=== PATIENT | male | born 1950 | race Caucasian/White ===

== ENCOUNTER → 2016-12-17 | Outpatient (CLI) | payer OTHER, MEDICARE ==
[~2016-12-17] MED LIST: BYSTOLIC 5 MG5 M1 PO; LOSARTAN-HCTZ1 EAC1 PO
--- NOTE | ~2016-12-17 | S ---
[facility] [place] [address] SURGICAL PATH RPT PROCEDURE Name: MJ MCMULLEN Room #: REG [facility].#: [id number] Admission: 12/17/16 Date of : 48 Discharge: Report #: [id number] Path Case #: [id number] PATHOLOGY REPORT COLLECTION DATE: 12/17/2016 RECEIVED DATE: 12/17/2016 SUBMITTING PHYS: Dr. Emiliano Starkey OTHER PHYS: Dr. Yajaira Pacheco SPECIMEN(S) RECEIVED: A.Hepatic stricture polyp B.Bx polyp 60 cm * * * * * * * * * * * * FINAL DIAGNOSIS: A. Polyp, hepatic stricture polyp, endoscopic biopsy: - Tubular adenoma. - Negative for high-grade dysplasia. B. Polyp, 60 cm, endoscopic biopsy: - Hyperplastic polyp. - Negative for dysplasia. (IUV:mgr; d/t: 12/18/16) PATHOLOGIST: Prachi Fontaine M.D. REPORT ELECTRONICALLY SIGNED BY: Prachi Fontaine M.D. DATE/TIME: 12/18/2016 16:27 * * * * * * * * * * * * GROSS PATHOLOGY: A. Received in formalin labeled "Mj Mcmullen and hepatic stricture polyp bx," are 2 segments of robles soft tissue measuring 0.6 x 0.2 x 0.2 cm in aggregate dimensions and measuring 0.2 and 0.4 cm in maximum dimension. The specimen is submitted entirely in cassette A1. B. Received in formalin labeled "Mj Mcmullen and bx polyp 60 cm," is a segment of robles soft tissue measuring 0.5 cm in maximum dimension. The specimen is submitted entirely in cassette B1. (TTL; 12/17/2016) CLINICAL HISTORY: History of polyps, colon polyps INITIAL CPT CODE(S): A; 27478 B; [address] [address] SURGICAL PATH RPT PROCEDURE Name: MJ MCMULLEN Room #: REG CLI Kvng.#: [id number] Admission: 12/17/16 Date of : 48 Discharge: Report #: [id number] Path Case #: [id number] Professional services performed by [facility] [address], [place] [address] Technical services performed by [facility] at [address] [place] [address], [facility] [address], [place] [address]. [facility] [address] [place] [address] PHONE: [phone] DIRECTOR: Porfirio Morrison M.D. * * * END OF REPORT * * *
--- NOTE | ~2016-12-17 | P ---
[facility] [place] [address] PROCEDURE REPORT Name: TIFFANIE MCMULLEN Room #: REG [facility].#: [id number] Admission: 12/17/16 Attend Phys: Emiliano Starkey MD Discharge: Date of : 48 Report #: [id number] THIS REPORT FOR: //name// CC: Yajaira Starkey OUTPATIENT COLONOSCOPY REPORT BRIEF HISTORY: The patient is a 65-year-old male with previous history of multiple adenomas. POSTOPERATIVE DIAGNOSES: 1. Diminutive polyp, hepatic flexure. 2. Diminutive polyp at 60 cm. 3. Mild sigmoid diverticulosis. MEDICATIONS: Deep sedation with propofol per anesthesia. SPECIMEN: 1. Hepatic flexure polyp. 2. Polyp at 60 cm. ESTIMATED BLOOD LOSS: 3 mL. PROCEDURE: Colonoscopy to cecum and terminal ileum with biopsy. FINDINGS: Prior to propofol sedation, procedure of colonoscopy discussed with the patient as well as potential risks and its complications. He indicates he understands and desires to proceed. DESCRIPTION OF PROCEDURE: With the patient in left lateral decubitus position, digital examination was completed, which revealed no abnormalities. Subsequently, the BigRep video colonoscope was introduced into the rectum and advanced under direct vision to the cecum. This was done with minimal difficulty. The cecum was identified by the ileocecal valve and the appendiceal orifice. I was able to visualize the distal segment of the terminal ileum, which was inspected and noted to be unremarkable. At that point, the scope was slowly withdrawn and careful circumferential views obtained including retroflexing the scope in the ascending colon. Upon slow withdrawal of the scope, the prep was noted to be good. The mucosa was normal limits, normal vascular pattern, normal light reflex. As we withdrew the scope, a diminutive polyp was seen and removed by biopsy from the hepatic flexure. No additional abnormalities were noted until we withdrew the scope to the mid descending colon at 60 cm, another diminutive polyp was seen and removed by biopsy. The scope was further withdrawn and no additional mucosal abnormalities were seen. However, he does have mild sigmoid diverticulosis without evidence of [facility] [address] [place] [address] PROCEDURE REPORT Name: BENEDICTTIFFANIE Neptali Room #: REG [facility] Pop.#: [id number] Admission: 12/17/16 Attend Phys: Emiliano Starkey MD Discharge: Date of : 48 Report #: [id number] diverticulitis. Scope was withdrawn in the rectum. Upon retroflexion, no abnormalities were seen. Scope was withdrawn. The patient tolerated the procedure well. CONDITION OF THE PATIENT UPON DISCHARGE: Following procedure, the patient drowsy, aroused, conversant and will be discharged home when fully ambulatory. INSTRUCTIONS TO THE PATIENT AND FAMILY AT THE TIME OF DISCHARGE: We will follow up on the path of the polyps. However, due to his history and finding of additional polyps we will have him return in 5 years for followup colonoscopy. He will otherwise return to care of Dr. Emiliano Murray and he should follow a high fiber diet due to his diverticular disease. Last colonoscopy was 3 years ago. Withdrawal time from the cecum was 16 minutes. <ELECTRONICALLY SIGNED> By: Emiliano Starkey MD 12/18/16 1714 0911 1216 Emiliano Starkey MD /nt
== END | disposition home or self-care (01) ==
LOC: GI 07:31
DX: D12.3 Benign neoplasm of transverse colon (principal); K63.5 Polyp of colon; K57.30 Diverticulosis of large intestine without perforation or abscess without bleeding
CPT/HCPCS: 62110; 62900

== ENCOUNTER 2020-09-18 09:00 | Inpatient (IN) | payer OTHER, MEDICARE ==
[~2020-09-18] VITALS: Ht 188 cm; Wt 103.0 kg
[2020-09-18 09:04] VITALS: BP 106/63
[2020-09-18] MEDS ORDERED: NORVASC5 MG PO (09:10)
[2020-09-18] MEDS ORDERED: LOSARTAN POTAS100 MG PO (09:10)
[2020-09-18] MEDS ORDERED: HYDROCHLOROTHIA25 M2 PO (09:10)
[2020-09-18] MEDS ORDERED: ASA81BEC PO (09:11)
[2020-09-18 10:02] LABS: ABSOLUTE NEUTROPHILS 5.4 thou/uL (1.4-8.2); BASOPHILS 0.3 % (0.0-2.0); EOSINOPHILS 0.1 % (0.0-3.0); HEMATOCRIT 46.2 % (42.0-52.0); HEMOGLOBIN 15.5 gm/dL (14.0-18.0); LYMPHOCYTES 8.3 % (24.0-44.0); MCH 31.6 pg (26.0-34.0); MCHC 33.5 g/dL (28.0-37.0); MCV 94.4 fL (80.0-100.0); MONOCYTES 7.5 % (1.0-8.0); POLYS 83.8 % (36.0-66.0); RDW 13.7 % (10.5-14.5); WBC 6.4 thou/uL (4.0-11.0)
[2020-09-18 10:14] LABS: ALBUMIN 3.2 g/dL (3.4-5.0); CALCIUM 9.2 mg/dL (8.5-10.1); CREATININE 1.5 mg/dL (0.7-1.3); TOTAL PROTEIN 8.1 g/dL (6.4-8.2)
[2020-09-18 10:16] LABS: POTASSIUM 2.8 mmol/L (3.5-5.1)
[2020-09-18 10:55] LABS: LARGE PLATELETS FEW; PLATELET COUNT 266 thou/uL (150-400); PLATELET ESTIMATE NORMAL
[2020-09-18 11:35] LABS: MAGNESIUM 2.3 mg/dL (1.8-2.4)
[2020-09-18 11:56] LABS: BE(vivo) 1.8 mmol/L (-2 to +3); PCO2 31.1 mmHg (35.0-45.0); PO2 59.9 mmHg (80.0-100.0); pH 7.506 (7.360-7.450); sO2 93.3 % (92.0-98.0)
--- NOTE | 2020-09-18 12:12 | EKG ---
[address] [place] [address] ELECTROCARDIOGRAM REPORT Name: TIFFANIE MCMULLEN Room #: 170-23 ADM IN M.R.#: [id number] Admission: 09/18/20 Attend Phys: Willy Underwood MD Discharge: Date of : 48 Report #: [id number] [facility] ED Test Date: 2020-09-18 Test Time: 10:16:35 Pat Name: TIFFANIE MCMULLEN Department: Room: 170 Gender: M Palliative Medicine Physician: phillip : 1950 Requested By: Cristiano Samaniego Order Number: [id number] : Aiden Ram Measurements Intervals Sarah Rate: 99 P: 4 MA: 157 QRS: 10 QRSD: 101 T: 30 QT: 345 QTc: 443 Interpretive Statements Sinus rhythm Probable left atrial enlargement No previous ECG available for comparison Electronically Signed On 09-18-2020 12:11:54 CLINIC MANAGER by Aiden Ram [email or web address] <ELECTRONICALLY SIGNED> By: Aiden Ram MD, [facility] 09/18/20 1211 1016 [facility][note 2] Aiden Ram MD, FACC /EPI
[2020-09-18 14:19] VITALS: BP 125/73
[2020-09-18 14:38] LABS: URINE BILIRUBIN NEGATIVE (Negative); URINE BLOOD 1+ (Negative); URINE CLARITY CLEAR; URINE COLOR YELLOW; URINE GLUCOSE-RANDOM* NEGATIVE (Negative); URINE KETONES NEGATIVE (Negative); URINE LEUKOCYTES-REFLEX NEGATIVE (Negative); URINE NITRITE-REFLEX NEGATIVE (Negative); URINE PROTEIN (DIPSTICK) NEGATIVE (Negative); URINE UROBILINOGEN 0.2 E.U./dl (0.2-1.0)
[2020-09-18 15:11] LABS: BACTERIA-REFLEX None Seen /HPF (None Seen); CRYSTALS None Seen /LPF (None Seen); HYALINE CASTS 0-3 Few /LPF (None Seen); SQUAMOUS None Seen /LPF (0-3); URINE RBC 0-2 Rare /HPF (0-2); URINE WBC-REFLEX 0-5 Rare /HPF (0-5)
--- NOTE | 2020-09-18 16:10 | NUR ---
69-year-old male who presents to the emergency department here [facility] with progressive shortness of breath over the past week. About a week ago, the patient was apparently diagnosed with COVID-19 infection at an outpatient [facility] pharmacy clinic. The patient says that he has been getting progressively more short of breath during that week. The patient has been admitted with COVID 19 pneumonia, acute hypoxic respiratory failure, possible superimposed bacterial pneumonia, possible sepsis, critical hypokalemia and HTN. The patient remains on 2 liters per NC and sats have been above 90%. ID has been consulted. The patient lists his spouse Giovanna Arceo as his next of kin and contact at [phone]. The patient in the ED is listed at A&O x4. Attempted x2 to contact spouse and call went directly to voicemail. CM to follow for discharge planning needs.
[2020-09-18 20:22] VITALS: BP 123/73
[2020-09-18 21:03] VITALS: BP 133/73
[2020-09-18 21:26] VITALS: BP 148/83
--- NOTE | 2020-09-18 22:11 | NUR ---
PT ADMITTED FROM ED. PT WAS AT HOME AND NOTED DECREASE O2 SATURATION 84% ON ROOM AIR. PT HAS BEEN IN ED SINCE THIS AM. PT ON NC 2L, LUNGS DIMINSIHED. NO SOA WITH CONVERSATION. PER ED WHEN PT AMBULATES HIS O2 SATURATION DROPS. IVF INTACT. PT REQUESTED AID FOR SLEEP. PT STATED HE WOULD CALL HIS TO LET HER KNOW OF ROOM NUMBER. STEADY GAIT.
[2020-09-19 03:50] VITALS: BP 126/75
[2020-09-19 06:12] LABS: HEMATOCRIT 38.9 % (42.0-52.0); MCH 31.3 pg (26.0-34.0); MCHC 33.4 g/dL (28.0-37.0); MCV 93.8 fL (80.0-100.0); RBC 4.14 mil/uL (4.50-6.00); RDW 13.7 % (10.5-14.5); WBC 4.8 thou/uL (4.0-11.0)
[2020-09-19 06:22] LABS: ALBUMIN 2.5 g/dL (3.4-5.0); DIRECT BILIRUBIN 0.1 mg/dL (<0.1-0.2); TOTAL BILIRUBIN 0.6 mg/dL (0.2-1.0); TOTAL PROTEIN 6.5 g/dL (6.4-8.2)
[2020-09-19 06:28] LABS: CALCIUM 8.2 mg/dL (8.5-10.1); CREATININE 1.1 mg/dL (0.7-1.3); POTASSIUM 3.2 mmol/L (3.5-5.1)
[2020-09-19 07:33] VITALS: BP 118/63
--- NOTE | 2020-09-19 11:33 | HC ---
[facility] [place] [address] CONSULTATION Name: TIFFANIE MCMULLEN Room #: 350-P ADM IN M.R.#: [id number] Admission: 09/18/20 Attend Phys: Willy Underwood MD Discharge: Date of : 48 Report #: [id number] THIS REPORT FOR: cc: Yajaira Pacheco MD,Hayder Quiroz MD, MD ~ DATE OF SERVICE: 09/18/2020 INFECTIOUS DISEASE CONSULTATION ATTENDING PHYSICIAN: Dr. Underwood. REASON FOR EVALUATION: COVID-19 infection, complicated by pneumonia, respiratory failure. HISTORY OF SUBJECTIVE: Chart reviewed, patient examined. This is a 69-year-old gentleman with known history of hypertension, who was confirmed to have COVID positive testing roughly a week ago. He had been having progressive dyspnea, had a cough that was nonproductive, did experience some nausea and poor p.o. intake. He had purchased a sat monitor and has noted to have it, over the last couple of days, generally in the 80s. Encouraged by the spouse, he did present to the Emergency Room where he was evaluated. Initial chest x-ray showed patchy bilateral interstitial opacities. Antigen testing was negative; however, PCR was positive. He was found to be hypokalemic with a potassium of 2.8. Creatinine was elevated at 1.5. ABGs were done, which showed a pH 7.506, pCO2 of 31.1, pO2 of 59.9 on 1 liter. Procalcitonin was less than 0.05. Urinalysis was without otherwise unremarkable. He noted fevers at home; however, he has been afebrile since admission. He was empirically started on therapy with azithromycin and ceftriaxone. He was given ivermectin as well as dexamethasone. ALLERGIES: SULFA and IODINE. CURRENT MEDICATIONS: Include amlodipine, aspirin, dexamethasone, azithromycin, ceftriaxone, albuterol, cholecalciferol, zinc, ascorbic acid, and ivermectin. PAST MEDICAL HISTORY: Hypertension. SOCIAL HISTORY: He is , nonsmoker, occasional ethanol, no illicit drug use. FAMILY HISTORY: Noncontributory. REVIEW OF SYSTEMS: Otherwise, unremarkable 10-point review of systems. PHYSICAL EXAMINATION: [facility] [address] [place] [address] CONSULTATION Name: TIFFANIE MCMULLEN Room #: [address] [place] [address] [place] [facility].#: [id number] Admission: 09/18/20 Attend Phys: Willy Udnerwood MD Discharge: Date of : 48 Report #: [id number] GENERAL: He is alert, cooperative, and appropriate. He is in mild distress, appears to be reasonably well nourished. VITAL SIGNS: Temperature 98.4, pulse 94, respirations 16, blood pressure 125/73, and saturations 92% on 2 liters. SKIN: Warm, dry, no rashes. HEENT: Normocephalic. Extraocular muscles intact. NECK: Supple. LUNGS: Few scattered crackles at the bases primarily. HEART: Borderline tachycardic, regular. I do not appreciate murmur. ABDOMEN: Soft, nontender, nondistended. EXTREMITIES: No cyanosis. GENITOURINARY AND RECTAL: Deferred. LABORATORY DATA: Most recent Lactic acid 1.3. Electrolytes: Sodium 135, potassium 2.8, chloride 95, bicarbonate is 31, anion gap of 9, BUN and creatinine 36 and 1.5, glucose of 123. LFTs unremarkable. Albumin 3.2, total protein of 8.1. CBC: White count of 6.4, H and H 15.5 46.2, platelets of 266. ASSESSMENT: COVID-19 infection, complicated by pneumonitis and mild respiratory failure, though apparent clinical course suggests he has been worsening. Agree with empiric antibacterial therapy in case of secondary bacterial pneumonitis. For the remdesivir, I think it is reasonable given the timeframe as well as the respiratory compromise at this point in addition to the corticosteroids. Received ivermectin and vitamins as well. Continue oxygen support as required. We will monitor expectantly. <ELECTRONICALLY SIGNED> By: Hayder Danielle MD 09/19/20 1133 1552 1652 Hayder Danielle MD /nt
--- NOTE | 2020-09-19 11:55 | NUR ---
PT CARE ASSUMED AT 0700. A&Ox4. NSR ON THE MONITOR. 93% ON 2L. IV PATENT WITH NO REDNESS OR EDEMA, FLUIDS INFUSING. 1/4 DOSES OF REMDESIVIR TODAY. POTASSIUM AT 3.2 TODAY. IS AT BEDSIDE. URINAL AT BEDSIDE. PT UP IN RECLINER. LUNGS DIMINISHES IN THE BASES WITH MILD CRACKLES. CALL LIGHT IN REACH. WILL CONTINUE TO MONITOR.
--- NOTE | 2020-09-19 13:07 | NUR ---
INITIAL ASSESSMENT: Received consult. SW reviewed chart and spoke with nursing and attending physician. Pt was admitted from home due to hypoxia. Pt placed in Enhanced Isolation due to COVID-19. Pt had first positive test on 09/09. Pt is afebrile and on 2L of O2. Pt is on IV abx and IV steroids. Pt is on Remdesivir and Ivermectin. SW spoke with pt via phone. Introduced role of SW. Pt is alert/orientated x 4. Pt reports he lives at home with his . Prior to admission, he was independent with ADLs. No use of DME. No hx of services or post-acute placement. Pt's PCP is Dr. Marie Morgan at [facility]. Plan is for pt to discharge home when medically stable. SW is following to assist as needed with discharge planning.
[2020-09-19 15:10] VITALS: BP 126/73
[2020-09-19 19:20] VITALS: BP 116/71
--- NOTE | 2020-09-19 21:54 | NUR ---
PT WATCHING TV. PT ASKED FOR RAZORS AND SHAVING CREAM AND PROVIDED. PT STATED HE WOULD LIKE TO SHOWER IN THE AM. DISCUSSED HOW HE WILL NEED HIS IV COVERED. O2 PER NC. LUNGS DIMINSHED. IVF INTACT.
[2020-09-20 03:39] VITALS: BP 126/77
[2020-09-20 06:28] LABS: ALBUMIN 2.4 g/dL (3.4-5.0); CALCIUM 8.5 mg/dL (8.5-10.1); DIRECT BILIRUBIN 0.2 mg/dL (<0.1-0.2); PHOSPHORUS 2.6 mg/dL (2.6-4.7); POTASSIUM 3.4 mmol/L (3.5-5.1); TOTAL BILIRUBIN 0.5 mg/dL (0.2-1.0); TOTAL PROTEIN 6.2 g/dL (6.4-8.2)
[2020-09-20 08:28] VITALS: BP 118/67
[2020-09-20 10:55] LABS: BE(vivo) -2.1 mmol/L (-2 to +3); HCO3 20.1 mmol/L (22.0-26.0); PCO2 27.9 mmHg (35.0-45.0); PO2 76.5 mmHg (80.0-100.0); pH 7.476 (7.360-7.450); sO2 96.3 % (92.0-98.0)
--- NOTE | 2020-09-20 12:52 | NUR ---
PT CARE ASSUMED AT 0700. A&Ox4. NSR ON THE MONITOR. WHEN ENTERING THE PT ROOM PT WAS FOUND TO BE HYPOXIC SATING AT 80-88%. PT WAS VERY RED IN THE FACE AND COMPLAINING OF HAVING A HARD TIME BREATHING. O2 ADJUSTED TO 5L WITH PT SATING UP O 94%. MD INFORMED WITH ORDERS OF ABGS AND CHEST XRAY GIVEN. SEE CHART FOR RESULTS. RT NOTIFIED WHICH ADJUSTED PT TO 6L HIGHFLOW. PT UP IN RECLINER AND FEELING BETTER. PT WORRIED ABOUT DISEASE PROCESS, COMFORT GIVEN. / REMDESIVIR. IV PATENT WIH NO REDNESS OR EDEMA, FLUIDS INFUSING. NSR ON THE MONITOR. WILL CONTINUE TO MONITOR. CALL LIGHT IN REACH. IS ENCOURAGED.
--- NOTE | 2020-09-20 14:48 | NUR ---
NOTE PER STRUCTURAL IRONWORKER: SW spoke with nursing and attending physician. Pt remains in Enhanced Isolation. Pt requiring 5L of O2. Pt is on Remdesivir. No weekend discharge anticipated. Pt admitted from home. May need therapy evals to assist with recommendations for discharge. DIANA is following to assist as needed with discharge planning. HOMER Shane
[2020-09-20 16:10] VITALS: BP 143/78
[2020-09-20 19:32] VITALS: BP 144/80
[2020-09-21 02:57] VITALS: BP 141/82
[2020-09-21 06:19] LABS: ALBUMIN 2.4 g/dL (3.4-5.0); CALCIUM 8.2 mg/dL (8.5-10.1); DIRECT BILIRUBIN 0.2 mg/dL (<0.1-0.2); PHOSPHORUS 2.5 mg/dL (2.6-4.7); POTASSIUM 3.9 mmol/L (3.5-5.1); TOTAL BILIRUBIN 0.6 mg/dL (0.2-1.0)
[2020-09-21 08:24] VITALS: BP 155/79
[2020-09-21 15:15] VITALS: BP 139/72
--- NOTE | 2020-09-21 18:32 | NUR ---
PATIENT CONT TO IMPROVE TOWARDS DSC GOALS. UP IN THE ROOM AD NEVIN. NO COMPLAIN OF PAIN NOTED. CONT ON ABT AND ON ADVERSE EFFECTS NOTED.
[2020-09-21 19:10] VITALS: BP 143/77
[2020-09-22 04:13] VITALS: BP 128/75
[2020-09-22 05:28] LABS: HEMATOCRIT 36.5 % (42.0-52.0); HEMOGLOBIN 12.3 gm/dL (14.0-18.0); MCH 31.8 pg (26.0-34.0); MCHC 33.6 g/dL (28.0-37.0); MCV 94.7 fL (80.0-100.0); RBC 3.86 mil/uL (4.50-6.00); RDW 13.8 % (10.5-14.5); WBC 8.8 thou/uL (4.0-11.0)
[2020-09-22 05:31] LABS: ALBUMIN 2.2 g/dL (3.4-5.0); CALCIUM 8.4 mg/dL (8.5-10.1); CREATININE 0.9 mg/dL (0.7-1.3); DIRECT BILIRUBIN 0.2 mg/dL (<0.1-0.2); PHOSPHORUS 3.9 mg/dL (2.6-4.7); POTASSIUM 4.2 mmol/L (3.5-5.1); TOTAL BILIRUBIN 0.6 mg/dL (0.2-1.0); TOTAL PROTEIN 5.9 g/dL (6.4-8.2)
--- NOTE | 2020-09-22 05:45 | NUR ---
PT MAKING SLOW PROGRESS. ON O2 AT 4L PER NC. DIMINISHED LUNG SOUNDS WITH FAINT CRACKLES NOTED IN BOTH BASES. REPORTS THAT HE FEELS HE IS BREATHING SLIGHTLY EASIER THIS MORNING.
[2020-09-22 07:31] VITALS: BP 151/89
[2020-09-22 15:25] VITALS: BP 134/64
--- NOTE | 2020-09-22 19:06 | NUR ---
CONT TO MAKE PROGRESS TOWARDS DISCHARGE. HAS NOT HAD NEED FOR INCREASE OXYGEN. HE IS NOW SLEEPING. WILL CONT WITH PLAN OF CARE.
[2020-09-22 19:44] VITALS: BP 130/87
[2020-09-23 04:18] VITALS: BP 142/86
--- NOTE | 2020-09-23 06:39 | NUR ---
A/O X 4.UP INDEPENDENTLY.DENIES PAIN.O2 4L NC.PATIENT IS HOPING TO GO HOME TODAY.MONITOR SHOWS SB,SR.POC CONTINUED.
[2020-09-23 07:00] VITALS: BP 145/78
--- NOTE | 2020-09-23 11:28 | NUR ---
pt care assumed at 0700, alert and oriented x4, denies any pain, nausea and vomitting. tried to titrate pt oxygen down to 3l, pt desat down to 88%, pt back on 4l. sob with exertion. pt has been using IS, 2000L. Discharge on hold. pt up ad rosalba. pt is slowly progressing towards poc. denies any needs soledad.
--- NOTE | 2020-09-23 15:55 | NUR ---
SW reviewed chart and spoke with nursing and attending physician. Pt remains in Enhanced Isolation. Pt is afebrile and on 3L of O2. Pt is on IV abx and IV steroids. Pt is not ready for discharge home yet. Pt will need a rest/exercise oximetry prior to discharge to determine home O2 needs. SW is following to assist as needed with discharge planning.
[2020-09-23 20:25] VITALS: BP 110/93
[2020-09-24 03:59] VITALS: BP 139/86
--- NOTE | 2020-09-24 06:05 | NUR ---
PT MAKING SLOW PROGRESS TOWARDS GOALS. PT ON O2 AT 4L PER NC. PT DC REPORTEDLY HELD UP DUE TO OXYGEN NEEDS. CONTINOUS PULSE OXIMETER PLACED LAST NIGHT PT WENT TO SLEEP. O2 WAS AT 4L PER NC. O2 SAT WAS 94-95%. O2 TITRATED DOWN TO 3L PER NC. WITHIN APPROXIMATELY 20-30 MINUTES OXIMETER WAS ALARMING AND THE O2 SAT WAS NOTED TO 87%. RETURNED O2 TO 4L PER NC. NO FURTHER OXYGEN ALARMS OVERNIGHT NIGHT. (LOW O2 ALARM SET FOR 89%)
[2020-09-24 07:02] VITALS: BP 132/79
[2020-09-24 11:09] LABS: BE(vivo) -2.5 mmol/L (-2 to +3); HCO3 20.4 mmol/L (22.0-26.0); PCO2 30.3 mmHg (35.0-45.0); PO2 63.3 mmHg (80.0-100.0); pH 7.447 (7.360-7.450); sO2 93.4 % (92.0-98.0)
--- NOTE | 2020-09-24 12:07 | NUR ---
PT CARE ASSUMED AT 0700, AXO4, DENIES ANY PAIN. PT ON 3L OF OXYGEN MARYELLEN, SAT AROUND 93%. UP IN THE CHAIR, UP AD NEVIN TO BATHROOM.DENIES ANY NEEDS AT MOMENT. WILL CONTINUE TO MONITOR.
--- NOTE | 2020-09-24 14:04 | NUR ---
DIANA reviewed chart and spoke with nursing and attending physician. Pt remains in Enhanced Isolation due to COVID-19. Pt is afebrile and requiring 4-5L of O2. Pt to have CT of the chest today. DIANA placed call to pt's room to discuss discharge plan and possible need for home O2. Pt verbalized understanding. DIANA provided options for [employer] companies. No preference voiced. DIANA faxed clinical info to [facility] for review. Will need rest/exercise oximetry completed prior to discharge. Plan is for pt to discharge home when medically stable. DIANA is following to assist as needed with discharge planning.
[2020-09-24 15:05] VITALS: BP 121/62
[2020-09-24 19:09] VITALS: BP 120/69
[2020-09-25 04:06] VITALS: BP 123/82
--- NOTE | 2020-09-25 04:31 | NUR ---
PT MAKING PROGRESS TOWARDS GOALS. ON O2 AT 2L PER NC OVERNIGHT. CONTINUOUS PULSE OXIMETER PLACED AT BEDTIME AGAIN. NOED O2 SAT AT 92-93 WHEN ASLEEP. NO LOW SATURATION ALARMS NOTED.
[2020-09-25 07:17] VITALS: BP 156/80
--- NOTE | 2020-09-25 09:13 | NUR ---
Nutrition: pt admitted with COVID+. Seen for LOS. Chart reviewed. Pt has been eating well, 100% of meals recently documented on regular diet. Nsg confirms. Physician documented severe malnutrition-RD deferring. Albumin is low however this is not parameter RD uses for dx malnutrition. Possible D/C to home today. Low nutrition risk.
[2020-09-25] MEDS ORDERED: PREDNISONE 20 M20 M1 PO (13:12)
[2020-09-25] MEDS ORDERED: ZINC SULFATE 2220 MG PO (13:12)
[2020-09-25] MEDS ORDERED: CEFDINIR300 MG PO (13:12)
[2020-09-25] MEDS ORDERED: XARELTO15 MG PO (13:12)
[2020-09-25] MEDS ORDERED: ACEROLA C500 MG PO (13:12)
[2020-09-25] MEDS ORDERED: VITAMIN D325 MC1 PO (13:12)
[2020-09-25] MEDS ORDERED: VENTOLIN HFA 1818 GM INH (13:12)
[2020-09-25] MEDS ORDERED: MELATONIN5 M1 PO (13:12)
[2020-09-25 13:25] VITALS: BP 156/80
[2020-09-25 14:13] VITALS: BP 156/80
--- NOTE | 2020-09-25 14:18 | NUR ---
DISCHARGE NOTE: DIANA reviewed chart and spoke with nursing and attending physician. Pt is medically stable to discharge home today. Orders written for HH. Rest/exercise oximetry ordered to determine pt's home O2 needs. Awaiting testing and script to send to [facility]. DIANA notified [facility] liaison. Portable tank will be delivered to pt prior to discharge. DIANA spoke with pt via phone to discuss discharge plan. Pt is aware and agreeable SW provided options for HH agency. No preference voiced. senior program planner to fax referral to [facility] for review. Pt to discharge home once home O2 has been delivered. Contact info for HH and Home O2 placed in pt's discharge summary. Pt's family will provide transportation home. DIANA is following to finalize discharge.
--- NOTE | 2020-09-25 14:40 | NUR ---
P.T. EVAL DEFERRED AT THIS TIME RN, O.T. AND PT INDICATE PT AMBULATING WELL ON O2. PT HAS BEEN UP AD NEVIN IN ROOM FOR SEVERAL DAYS. PT W/D/C ORDERS AND PLANNING TO D/C AFTER RT ARRIVES AND PERFORMS EXERCISE OXIMETRY. PT DENIED ANY HOME THERAPY NEEDS.
--- NOTE | 2020-09-25 15:42 | NUR ---
PT DISCHARGING TODAY TO HOME WITH HH FAXED REFERRAL TO [facility] SPOKE WITH SOLOMON IN INTAKE SHE RECEIVE REFERRAL AND WILL ACCEPT DC ORDERS/SUMMARY FAXED RECEIVED CONFIRMATION [facility] WILL CALL TO ARRANGE VISITS.
== END 2020-09-25 16:35 | disposition home health service (06) | DRG 871 ==
LOC: ER 09:00 → EROBS 10:51 → 3W 10:51 → EROBS 11:16 → 3W 21:03
PROVIDERS: Emergency Medicine; Specialist; ADMIT Internal Medicine; ATTEND Internal Medicine
PROC: XW033E5 Introduction of Remdesivir Anti-infective into Peripheral Vein, Percutaneous Approach, New Technology Group 5 (ICD-10-PCS; principal; 2020-09-18)
PROC: 5A0935A Assistance with Respiratory Ventilation, Less than 24 Consecutive Hours, High Flow/Velocity Cannula (ICD-10-PCS; 2020-09-23)
DX: A41.89 Other specified sepsis (principal); U07.1 COVID-19; J96.01 Acute respiratory failure with hypoxia; J12.82 Pneumonia due to coronavirus disease 2019; E43 Unspecified severe protein-calorie malnutrition; I10 Essential (primary) hypertension; E87.6 Hypokalemia; Z88.2 Allergy status to sulfonamides; Z91.041 Radiographic dye allergy status; Z79.82 Long term (current) use of aspirin; Z79.899 Other long term (current) drug therapy; Z68.29 Body mass index [BMI] 29.0-29.9, adult
CPT/HCPCS: 10879

== ENCOUNTER → 2020-11-04 | Outpatient (CLI) | payer OTHER, MEDICARE ==
[~2020-11-04] MED LIST changes: +ACEROLA C500 MG PO; +ASA81BEC PO; +CEFDINIR300 MG PO; +HYDROCHLOROTHIA25 M2 PO; +LOSARTAN POTAS100 MG PO; +MELATONIN5 M1 PO; +NORVASC5 MG PO; +PREDNISONE 20 M20 M1 PO; +VENTOLIN HFA 1818 GM INH; +VITAMIN D325 MC1 PO; +XARELTO15 MG PO; +ZINC SULFATE 2220 MG PO
== END ==
LOC: RAD 14:08
PROVIDERS: ATTEND Internal Medicine Pulmonary Disease
DX: R91.8 Other nonspecific abnormal finding of lung field (principal)

== ENCOUNTER → 2021-03-11 | Outpatient (CLI) | payer OTHER, MEDICARE | LOC: RAD 12:05 | PROVIDERS: ATTEND Pediatrics | DX: U07.1 COVID-19 (principal); J12.82 Pneumonia due to coronavirus disease 2019 ==